=== PATIENT | male | born 1995 | race African-American/Black ===

== ENCOUNTER 2022-04-15 08:08 | Emergency (ER) | payer SELFPAY ==
[2022-04-15] MEDS ORDERED: Boostrix 0.5 ML (Tdap) VIAL (>/=7 yrs of age) ONE (09:46)
== END 2022-04-15 10:03 | disposition home or self-care (01) ==
LOC: ERS 08:08
DX: S01.411A Laceration without foreign body of right cheek and temporomandibular area, initial encounter (principal); Z23 Encounter for immunization; W22.8XXA Striking against or struck by other objects, initial encounter
CPT/HCPCS: 12013; 70486; 90471; 90715